=== PATIENT | male | born 2005 | race Caucasian/White ===

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

== ENCOUNTER 2023-04-12 20:35 | Emergency (ER) | payer OTHER, SELFPAY ==
[2023-04-12 20:43] VITALS: BP 146/80; PULSE 106; RESP 17; TEMP 36.8; O2SAT 98; BMI 30.5
[2023-04-12] MEDS: clindamycin 150 mg Capsule 300 MG PO (21:51)
[2023-04-12] MEDS: lidocaine 2% viscous 15 mL UDC 5 ML MUCOUS MEM (21:51)
[2023-04-12] MEDS: chlorhexidine gluconate 0.12% Btl 473 mL 30 ML MUCOUS MEM (22:15)
--- NOTE | 2023-04-13 01:15 | W.ED.WOUNDLC ---
HPI - Wound/Laceration General: Chief Complaint: Wound/Laceration Stated Complaint: head hit mouth , lip lacinjury Time Seen by Provider: 04/12/23 20:58 Source: patient Mode of arrival: ambulatory Limitations: no limitations History of Present Illness: Patient presents emergency department today for evaluation treatment of injury sustained to his inner upper lip. Patient states he was playing basketball with some friends tonight when he fell, causing his upper teeth to puncture the inside of his upper lip. Patient has had some bleeding but is otherwise controlled. Patient states he attended public school and believes tetanus immunization is up-to-date. Patient has some tenderness to his top teeth but denies any other facial pain Review of Systems General: Reports: 10 or more systems reviewed and unremarkable except in HPI and below PFSH ED PFSH: Medical History Attention-deficit hyperactivity disorder, combined type Social History Smoking and tobacco/nicotine status: never used tobacco/nicotine Physical Exam Const: COMMON NORMALS: no acute distress, patient oriented x3 and alert HENMT: OTHER: Patient has 2 puncture/lacerations approximately 0.5 cm each in a linear fashion noted to the very upper inside of his upper lip. It does not affect the gumline. Bleeding is controlled. There is minimal wound edge separation noted. No signs of acute dental injury with missing, moving, or chipped teeth. Patient is tender when I press on his teeth but I did not appreciate any movement. Patient was nontender to pressure on the maxilla or his nasal bone. Nontender of the lower jaw or TMJs. Eye: COMMON NORMALS: Equal, round and reactive pupils present, EOMs intact bilaterally and conjunctivae normal CONJUNCTIVA: Yes conjunctivae normal PUPIL: Yes Equal, round and reactive pupils present Neck/C-Spine: COMMON NORMALS: no JVD Lymph: LYMPHATIC: no lymphadenopathy noted Resp: COMMON NORMALS: normal respiratory effort, No retractions and No use of accessory muscles Cardio: COMMON NORMALS: no JVD and regular rate RATE: regular rate : COMMON NORMALS: Yes no CVA tenderness BLADDER/KIDNEY EXAM: Yes no CVA tenderness Back/Pelvis: COMMON NORMALS: no CVA tenderness, thoracic and lumbar spine normal to inspection and thoraco-lumbar ROM normal Extremity: COMMON NORMALS: normal to inspection, full ROM and no pedal edema Neuro: COMMON NORMALS: patient oriented x3 SENSORIUM/ORIENTATION: Yes alert Skin: COMMON NORMALS: no rashes or lesions noted and turgor normal GENERAL SKIN EXAM: no rashes or lesions noted and turgor normal Course Vital Signs: Vital signs: Vital Signs Temperature 98.3 F 04/12/23 20:43 Pulse Rate 106 H 04/12/23 20:43 Respiratory Rate 17 04/12/23 20:43 Blood Pressure 146/80 04/12/23 20:43 Pulse Oximetry 98 04/12/23 20:43 Oxygen Delivery Me thod Room Air 04/12/23 20:43 MDM - Wound/Laceration Medical Decision Making Discussed with patient that he does have 2 small, linear wounds to the upper inner lip. Given their location we discussed leaving them open due to significant increased risk of infection. Patient has a penicillin allergy but, according to up-to-date, can be treated with clindamycin. First dose of medication was provided to the patient here in the emergency department. He was also given a chlorhexidine gluconate rinse to clean the wounds as well as viscous lidocaine to help with pain. Explained to the patient that should heal quickly but encouraged wound cleaning twice a day with prescription chlorhexidine gluconate. He can also use Tylenol and ibuprofen. Discussed cold and soft foods for the next couple of days if needed for comfort. I did encourage him to have follow-up with his dentist next week for general recheck of the upper teeth-especially if they are pump tender and sore. Patient verbalized understanding and agreement to treatment plan. Differential Diagnosis Likely laceration; Unlikely abscess, abrasion or avulsion of skin No radiology studies performed this visit Discharge Plan Discharge Patient Disposition: Home Clinical Impression: Laceration of lip Condition: Stable Prescriptions: New chlorhexidine gluconate 0.12 % mouthwash 15 ml buccal BID Qty: 118 0RF clindamycin HCl 300 mg capsule 300 mg PO Q6H 7 Days Qty: 28 0RF No Action methylphenidate HCl [Concerta] 36 mg tablet extended release 24hr 72 mg PO QAM 30 Days Qty: 60 0RF methylphenidate HCl [Concerta] 36 mg tablet extended release 24hr 72 mg PO QAM 30 Days Qty: 60 0RF methylphenidate HCl [Concerta] 36 mg tablet extended release 24hr 72 mg PO QAM 30 Days Qty: 60 0RF Discharge Orders: Discharge ED (Routine); Ordered 04/12/23 Ordered By: Katie Orellana Discharge Diet: Advance as tolerated Discharge Activity: Resume usual activity Patient Instructions: Mouth Injury, Dental Laceration (ED) Activity Restrictions/Additional Instructions: Examination today does show to puncture/lacerations to the upper inside portion of your lip. Fortunately, these heal very quickly-in a matter of days. Due to the very high risk of infection due to the significant amount of bacteria that lives inside the mouth, we typically do not suture wounds or lacerations inside the mouth closed. We are going to start you on antibiotics tonight here in the emergency department to start protective measures against developing an infection. I am also prescribing you a mouthwash to use twice a day for the next week to help facilitate healing and cleanliness of your wounds. You still need to keep your teeth brushed like normal however, try and avoid scrubbing directly into your wounds. While I did not appreciate any loose or chipped teeth, I would recommend a follow-up appoint with your dentist next week for an overall recheck if needed. If for any reason you have concerns for infection-especially while using the cleaning mouthwash and antibiotics over the next several days we recommend being seen and reevaluated here again. Coding Level of Care Code ED Knitting Machine Operator Automatic for Robbi Olivas
== END 2023-04-12 22:10 | disposition home or self-care (01) ==
PROVIDERS: Emergency Provider Physician Assistant
DX: S01.511A Laceration without foreign body of lip, initial encounter (principal); W19.XXXA Unspecified fall, initial encounter; Y93.67 Activity, basketball; Y92.219 Unspecified school as the place of occurrence of the external cause
CPT/HCPCS: 99283